=== PATIENT | female | born 1975 | race Caucasian/White ===

== ENCOUNTER → 2017-02-12 | Outpatient (CLI) | payer OTHER ==
[~2017-02-12] MED LIST: APAP500 PO; AUGMENTIN 875875 MG PO; IBUPROFEN 600600 M1 PO; LANOLIN56 GM; NEOSPORIN ANT70.8 GM TP; NORCO 5-325 TA1 EACH PO; SENNA PO
== END ==
LOC: RAD 01:00
DX: Z12.31 Encounter for screening mammogram for malignant neoplasm of breast (principal)

== ENCOUNTER → 2018-07-07 | Outpatient (CLI) | payer OTHER | LOC: RAD 10:26 | DX: Z12.31 Encounter for screening mammogram for malignant neoplasm of breast (principal) ==